=== PATIENT | male | born 1985 | race Caucasian/White ===

== ENCOUNTER 2019-06-04 01:34 | Emergency (ER) | payer SELFPAY ==
[2019-06-04 01:35] VITALS: BP 147/89; PULSE 87; RESP 18; TEMP 36.8; O2SAT 97; BMI 25.7
--- NOTE | 2019-06-04 01:40 | ED.VIS.GEN ---
History of Present Illness Chief Complaint: Dental Informant: Patient Narrative: Patient stated he has an infected cavity on the right lower part of his mouth. It started hurting yesterday. It got swollen tonight. Denies any drainage. He stated it is decayed to the gumline. Is the only to the house on that side now. He does not have a dentist. No fevers or chills. Current severity is mild to moderate. Difficult to sleep. He is been using Tylenol. Past Medical History - Allergies and Home Meds Allergies/Adverse Reactions: Allergies No Known Allergies Allergy (Verified 06/04/19 01:34) Primary Care Physician: Care Physician,No Primary [Primary Care Provider] - Prior records reviewed: Yes Past Medical History: - - Viewed Surgical History: - - Reviewed Smoking Status: Current every day smoker Alcohol: None Drugs: None Review of Systems General: Denies: Chills, Fever, Sweats Eyes: Denies: Visual changes - bilaterally, Diplopia ENT: Reports: - - Right lower tooth pain with cheek swelling. Denies: Rhinorrhea, Sore throat Cardiovascular: Denies: Chest pain, Palpitations Respiratory: Denies: Dyspnea, Cough, Dyspnea on exertion Gastrointestinal: Denies: Abdominal pain, Nausea, Vomiting, Diarrhea, Melena, Hematochezia Genitourinary: Denies: Dysuria, Hematuria, Frequency Musculoskeletal: Denies: Back pain, Extremity Pain Skin: Denies: Rash, Wounds Neurological: Denies: Headache, Weakness, Numbness Physical Exam Vital Signs/Narrative: Vital Signs Temp Pulse Resp BP Pulse Ox 06/04/19 01:35 98.3 F 87 18 147/89 H 97 General: Well nourished, Well developed, No Acute Distress Head: Normocephalic, Atraumatic Eyes: Perrl, EOMI ENT: Moist mucous membranes, No rhinorrhea, - - Right lower molar evaluated it is broken and decayed to the gumline. There is no swelling to the gum. There is no abscess to the gum. Neck: Supple, Nontender Cardiovascular: Regular rate, Regular rhythm, No murmurs Respiratory: No distress, CTA bilaterally, Chest nontender Abdomen: Soft, Nontender, Nondistended, Normal bowel sounds Back: Nontender, Normal Inspection Extremities: Nontender, No edema Skin: Normal color, No rash Neurological: Alert, Oriented x3, Cranial nerves II-XII grossly intact, Normal Strength, Normal Sensation Psychological: Normal affect, Normal Mood Diagnostic/Tx/Re-eval - Medical Decision Making Patient has an infected cavity in his right lower jawline. Will be given a referral dentist. Given amoxicillin. Given a shot of Toradol. He will ice. There is no evidence of abscess to the gum but he probably has a pulpitis with early periapical abscess. ED Disposition - Plan for ED Patient: Diagnosis: Dental infection Instructions: Dental Abscess Prescriptions: Amoxicillin 500 mg PO TID #30 tab Prescription Printed Referrals: Dentist,Your [STAFF PHYSICIAN] -
[2019-06-04] MEDS: AMOXICILLIN 500 MG CAPSULE PO (01:50)
[2019-06-04] MEDS: Ketorolac 15 MG/ML Vial IM (01:50)
== END 2019-06-04 02:20 | disposition home or self-care (01) ==
LOC: ED 01:48
PROVIDERS: Emergency Provider Emergency Medicine
DX: K04.7 Periapical abscess without sinus (principal); F17.200 Nicotine dependence, unspecified, uncomplicated
CPT/HCPCS: 96372; 99284